=== PATIENT | female | born 1965 | race Two or more races ===

== ENCOUNTER 2024-08-01 19:04 | Emergency (ER) | payer MEDICAID, SELFPAY ==
[2024-08-01 19:05] VITALS: BMI 41.1
--- NOTE | 2024-08-01 19:12 | EKG_ITS ---
[facility] Test Date: 2024-08-01 Pat Name: COLTEN YAO Department: Room: - Gender: Female Clarity Specialists: : 1965 Requested By: Brandon Mcpherson Order Number: [id number] Reading MD: Brandon Mcpherson Measurements Intervals [place] Rate: 91 P: 13 IN: 154 QRS: -34 QRSD: 91 T: 37 QT: 353 QTc: 436 Interpretive Statements SINUS RHYTHM LEFT AXIS DEVIATION [QRS AXIS < -30] LOW QRS VOLTAGE IN PRECORDIAL LEADS [QRS DEFLECTION < 1.0 mV IN CHEST LEADS] PATTERN CONSISTENT WITH PULMONARY DISEASE MODERATE VOLTAGE CRITERIA FOR LVH, CONSIDER NORMAL VARIANT [MEETS CRITERIA IN ONE OF: R(aVL), S(V1), R(V5), R(V5/V6)+S(V1)] Compared to ECG 11/16/2023 10:07:37 Left-axis deviation now present Myocardial infarct finding no longer present /store/S0/[id number]
[2024-08-01 19:16] VITALS: BP 136/88; PULSE 91; RESP 18; TEMP 37.2; O2SAT 99
--- NOTE | 2024-08-01 19:28 | XR_ITS ---
Examination: PA chest single view TECHNIQUE: Upright PA chest single view. Exam date and time: August 01, 2024, 1935 hours Comparison 12/27/2022. INDICATIONS: Chest pressure beginning 2 days ago. FINDINGS: Normal heart size. No pneumonia or pulmonary edema Reduced inspiration IMPRESSION: No pneumonia or pulmonary edema
--- NOTE | 2024-08-01 19:57 | PD.EDCHEST ---
ED Chest Pain RME/HPI General Chief Complaint: Chest Pain Stated Complaint: CHEST PAIN, DIZZINESS, SHAKY Time Seen by Provider: 08/01/24 19:28 Arrival date/time: 08/01/24 19:04 59F with history of HTN and HLD presents to ED with 2 days of CP, dizziness, SOB, and blurry vision. Patient's mom very recently, but patient denies SI/HI. Limitations: no limitations Related Data Home Medications ?Medication ?Instructions ?Recorded ?Confirmed amlodipine 10 mg tablet 10 mg PO QDAY #0 tabs 03/13/17 12/29/23 albuterol sulfate 90 mcg/actuation 1 inh inhalation QID PRN 10/13/22 12/29/23 aerosol inhaler Bronchospasm atorvastatin 20 mg tablet 20 mg PO QPM 10/13/22 12/29/23 lisinopril 40 mg tablet 40 mg PO QDAY 10/13/22 12/29/23 aspirin 81 mg tablet,delayed 81 mg PO QDAY 11/16/23 12/29/23 release pantoprazole 40 mg tablet,delayed 40 mg PO QDAY 11/16/23 12/29/23 release (Protonix) semaglutide (weight loss) 0.5 0.5 mg subcut QWEEK 11/16/23 12/28/23 mg/0.5 mL subcutaneous pen injector (Wegovy) Previous Rx's ?Medication ?Instructions ?Recorded famotidine 40 mg tablet (Pepcid) 40 mg PO QDAY #7 tabs 11/10/23 hydrocodone 5 mg-acetaminophen 325 1 tab PO Q6H PRN pain #30 tabs 11/17/23 mg tablet ciprofloxacin HCl 500 mg tablet 500 mg PO BID #14 tabs 12/29/23 (Cipro) hydrocodone 5 mg-acetaminophen 325 1 tab PO Q6H PRN pain #20 tabs 12/29/23 mg tablet levofloxacin 750 mg tablet 750 mg PO QDAY #14 tabs 01/18/24 Allergies Allergy/AdvReac Type Severity Reaction Status Date / Time No Known Allergies Allergy Verified 08/01/24 19:05 Review of Systems Review of Systems Systems Reviewed: All systems reviewed, normal except as documented Constitutional Constitutional: Reports system reviewed and no additional complaints, except as documented, Denies fever(s) and Denies headache(s) Eyes Eyes: Reports as per HPI and Reports blurry vision ENT Ears, Nose, Mouth, and Throat: Reports as per HPI, Denies disequilibrium, Denies headache(s) and Reports vertigo Cardiovascular Cardiovascular: Reports system reviewed and no additional complaints, except as documented, Reports as per HPI, Reports chest pain and Reports dyspnea Respiratory Respiratory: Reports system reviewed and no additional complaints, except as documented, Denies cough and Reports dyspnea Gastrointestinal Gastrointestinal: Reports system reviewed and no additional complaints, except as documented, Denies abdominal pain, Denies nausea and Denies vomiting Neurologic Neurologic: Reports system reviewed and no additional complaints, except as documented, Denies confusion, Denies disequilibrium, Denies headache(s) and Reports vertigo Psychiatric Psychiatric: Denies confusion Past Medical History Past Medical History NEUROLOGIC: Negative Neurological Disorders or Seizures CARDIAC: Positive Cardiac Disorders, Hypercholesterolemia and Hypertension; Negative Congestive Heart Failure, Edema, Cellulitis or Varicose Veins RESPIRATORY: Positive Asthma; Negative Chronic Obstructive Pulmonary Disease (COPD) GASTROINTESTINAL: Positive Gastrointestinal Disorders, Gall Bladder Disease, Gastroesophageal Reflux Disease and Obesity; Negative Hepatitis GENITOURINARY: Positive Genitourinary Disorders and Kidney Stones; Negative Renal Disease REPRODUCTIVE: Positive Previous Pregnancies (3) MUSCULOSKELETAL: Positive Musculoskeletal Disorders and Arthritis ENDOCRINE: Negative Endocrine Disorders, Diabetes Mellitus Type 1 or Diabetes Mellitus Type 2 HEMATOLOGIC: Negative Blood Disorders or Sickle Cell Disease OTHER HISTORY: Positive Hospitalization and Chicken Pox; Negative Autoimmune Disease, Shingles, Falls, Blood Transfusions, Blood Transfusion Reaction, Anesthesia Reactions, Chemotherapy, Radiation Therapy, MRSA, Measles, Mumps or Cancer Family History FAMILY HISTORY: Positive Family Respiratory Disorders, Family Cardiac Disorders and Family Surgery; Negative Family Psychiatric Problems, Family Gastrointestinal Problems, Family Cancer or Family Anesthesia Reaction Surgical History SURGICAL: Positive Hysterectomy, Tubal Ligation and Section (x3); Negative Pacemaker Social History SMOKING STATUS: Never smoker SUBSTANCE USE: does not use ED Exam General Limitations: Present no limitations General appearance: Present alert, in no apparent distress and anxious (crying) Head Head exam: Present atraumatic Eye Eye exam: Present normal appearance, PERRL and EOMI ENT ENT exam: Present normal exam, normal oropharynx and mucous membranes moist Neck Neck exam: Present normal inspection, full ROM and trachea midline Chest Chest inspection: Present normal inspection and symmetric chest wall rise Respiratory Respiratory exam: Present normal lung sounds bilaterally Cardiovascular Cardiovascular exam: Present regular rate, normal rhythm and normal heart sounds Abdominal Exam Abdominal exam: Present soft and normal bowel sounds Extremities Exam Extremities exam: Present normal inspection and full ROM Back Exam Back exam: Present normal inspection and full ROM Neurological Exam Neurological exam: Present alert, oriented X3 and CN II-XII intact Psychiatric Psychiatric exam: Present normal affect and normal mood Skin Skin exam: Present warm, dry, intact and normal color Course Quality Measures none Orders Category Date Time Status EKG (ED ONLY) *Do not use* NOW Care 08/01/24 19:12 Completed EKG (ED Only) Stat Exams 08/01/24 19:12 Draft XR chest 1V portable Stat Exams 08/01/24 19:28 Completed CBC Stat Lab 08/01/24 19:46 Completed Comprehensive Metabolic Panel Stat Lab 08/01/24 19:46 Completed Lipase Stat Lab 08/01/24 19:46 Completed Troponin I Stat Lab 08/01/24 19:46 Completed Diazepam [Valium] Med 08/01/24 19:28 Discontinued 5 mg PO X1 ONE Vital Signs Vital signs: Vital Signs Temperature 99 F 08/01/24 19:16 Pulse Rate 91 08/01/24 19:16 Respiratory Rate 18 08/01/24 19:16 Blood Pressure 136/88 H 08/01/24 19:16 Pulse Oximetry (%) 99 08/01/24 19:16 Oxygen Delivery Method Room Air 08/01/24 19:16 O2 at 99% on RA and WNLs Chest Pain MDM Narrative MDM Narrative:: 59F with history of HTN and HLD presents to ED with 2 days of CP, dizziness, SOB, and blurry vision. Patient's mom very recently, but patient denies SI/HI. Physical exam reveals normal WOB. RRR. CN II-XII grossly intact. Patient is afebrile, alert, but anxious/crying. Gait normal. EKG is NSR. Normal trop. CXR normal. No leukocytosis. CMP unremarkable. Valium relieved symptoms. Likely stress reaction. Patient data External records reviewed:: [facility] previous records Clinical information provided by:: patient Social determinants that could affect healthcare access:: none Patient has the following chronic illnesses:: HTN and HLD How is presenting disease/condition affected by chronic disease/condition?: exacerbated by Evaluation data The following diagnostics were reviewed and interpreted by me:: lab results, radiology exam(s) and EKG tracing(s) Lab and/or radiology exams considered but not ordered:: ordered Interpretation Summary: above Medications / Prescriptions Medications or Prescriptions considered but not ordered:: ordered Medication administrations:: Medication Administration History Discontinued Medications Diazepam (Diazepam 5 Mg Tablet) 5 mg PO X1 ONE Stop: 08/01/24 19:29 Last Admin: 08/01/24 20:16 Dose: 5 mg Documented By: KF above Consultations Consultation(s) initiated? (list below): No Diagnosis Chest Pain Differential Diagnosis: fracture of rib, pneumothorax, stable angina, unstable angina pectoris, atypical chest pain, st elevation myocardial infarction, costochondritis, chest pain, biliary colic and other (anxiety, stress reaction) Most likely diagnosis given after review of the tests above:: stress reaction Admission Indicated Admission indicated?: not indicated Admission Request Was there a request for admission?: No Disposition Plan Disposition Plan: Discharge Discharge Attestation Discharge Attestation: The patient and all family members were given an opportunity to ask questions and understood the discharge instructions. Discharge instructions specifically effects, indications for sooner follow up or return to the emergency department, and the expected course of current diagnosis. Patient condition: Stable Discharge Plan Plan Patient Disposition: HOME (Self Care) Discharge Disposition comment: Stable Prescriptions/Referrals Prescriptions/Med Rec: No Action amlodipine 10 mg Tablet 10 mg PO QDAY Qty: 0 atorvastatin 20 mg Tablet 20 mg PO QPM lisinopril 40 mg Tablet 40 mg PO QDAY albuterol sulfate 90 mcg/actuation Hfa Aerosol Inhaler 1 inh INHALATION QID PRN (Reason: Bronchospasm) levofloxacin 750 mg tablet 750 mg PO QDAY Qty: 14 0RF famotidine [Pepcid] 40 mg tablet 40 mg PO QDAY Qty: 7 0RF aspirin 81 mg Tablet,Delayed Release (Dr/Ec) 81 mg PO QDAY pantoprazole [Protonix] 40 mg Tablet,Delayed Release (Dr/Ec) 40 mg PO QDAY Wegovy 0.5 mg/0.5 mL Pen Injector 0.5 mg SUBCUT QWEEK Rx Instructions: administer weeks 5 through 8 of therapy hydrocodone-acetaminophen 5-325 mg tablet 1 tab PO Q6H MDD 4 PRN (Reason: pain) Qty: 30 0RF hydrocodone-acetaminophen 5-325 mg tablet 1 tab PO Q6H MDD 4 PRN (Reason: pain) Qty: 20 0RF ciprofloxacin HCl [Cipro] 500 mg tablet 500 mg PO BID Qty: 14 0RF Referrals: Ginny Briggs PA-C [Primary Care Provider] - In 1 week Problem List Clinical Impression: Stress reaction Patient/Caregiver Discharge Instructions Education Materials: Your Body's Response to Anxiety Additional Instructions: Please follow-up with PCP within 24-48 hours and return immediately if symptoms worsen. Print Language: Nauruan Stand Alone Forms: Patient Portal Info Letter PA/TIMBER HARVESTER OPERATOR Supervising Physician PA/TIMBER HARVESTER OPERATOR Supervising Physician: Dr. Najera
[2024-08-01 20:03] LABS: Basophils % (Auto) 0 % (0-2.5); Eosinophils # (Auto) 0.2 Thou/mm3 (0.0-0.5); Eosinophils % (Auto) 2 % (0-10); Hematocrit 41.7 % (36.0-46.0); Hemoglobin 14.1 g/dL (12.0-16.0); Immature Granulocytes % (Auto) 0 % (0-0); Immature Granulocytes Auto 0.02 Thou/mm3 (0.00-0.00); Lymphocytes # (Auto) 2.1 Thou/mm3 (1.0-4.8); Lymphocytes % (Auto) 19 % (10-50); Mean Corpuscular HGB Conc 33.8 g/dl (31.0-37.0); Mean Corpuscular Hemoglobin 30.1 pg (25.0-35.0); Mean Corpuscular Volume 89 fL (80-100); Monocytes # (Auto) 0.4 Thou/mm3 (0.0-0.8); Monocytes % (Auto) 4 % (0-12); Neutrophils # (Auto) 8.1 Thou/mm3 (1.8-7.7); Neutrophils % (Auto) 75 % (37-80); Nucleated Red Blood Cell % 0 /100 WBC (0); Platelet Count 249 Thou/mm3 (140-440); RDW Standard Deviation 42.3 fL (36.4-46.3); Red Blood Count 4.69 Miln/mm3 (4.00-5.20); White Blood Count 10.8 Thou/mm3 (3.6-11.0)
[2024-08-01] MEDS: DIAZEPAM 5 MG TABLET PO (20:16)
[2024-08-01 20:28] LABS: Alanine Aminotransferase 12 U/L (10-49); Albumin, Serum 4.5 gm/dL (3.5-5.0); Albumin/Globulin Ratio 1.4 (1.2-2.2); Alkaline Phosphatase 126 U/L (46-116); Anion Gap 8 (7-16); Aspartate Amino Transferase 12 U/L (0-34); BUN/Creatinine Ratio 19 Ratio (12-20); Bilirubin,Total 0.5 mg/dL (0.3-1.2); Blood Urea Nitrogen 15 mg/dL (9-23); Calcium 9.4 mg/dL (8.3-10.6); Calcium (Corrected) 9.4 mg/dL (8.5-10.1); Carbon Dioxide 24.4 mMol/L (20.0-31.0); Chloride 105 mMol/L (98-107); Creatinine (Component) 0.8 mg/dL (0.6-1.3); Estimated Creatinine Clearance 92.4 mL/min (>60); Globulin 3.3 gm/dL (2.3-3.5); Glucose 102 mg/dL (74-106); Lipase 56 U/L (12-53); Osmolality,Calculated 274 (275-295); Potassium 3.7 mMol/L (3.4-5.1); Sodium 137 mMol/L (136-145); Total Protein 7.8 gm/dL (5.7-8.2); Troponin I < 0.002 ng/mL (0.0-0.045); eGFR > 60 See Note
== END 2024-08-01 22:19 | disposition home or self-care (01) ==
PROVIDERS: Physician Assistant; Emergency Provider Emergency Medicine; PCP Physician Assistant
DX: F43.9 Reaction to severe stress, unspecified (principal); R07.89 Other chest pain; R94.31 Abnormal electrocardiogram [ECG] [EKG]; I10 Essential (primary) hypertension; E78.5 Hyperlipidemia, unspecified
CPT/HCPCS: 36415; 71045; 80053; 83690; 84484; 85025; 93005; 99283; A9270

== ENCOUNTER 2024-10-25 23:24 | Emergency (ER) | payer MEDICAID, SELFPAY ==
[2024-10-25 23:25] VITALS: BMI 48.0
[2024-10-25 23:30] VITALS: BP 174/96; PULSE 101; RESP 17; TEMP 36.8; O2SAT 98
--- NOTE | 2024-10-25 23:41 | EKG_ITS ---
[facility] Test Date: 2024-10-25 Pat Name: COLTEN YAO Department: Room: - Gender: Female Shipping Packer: : 1965 Requested By: Brandon Mcpherson Order Number: [id number] Reading MD: Brandon Mcpherson Measurements Intervals [place] Rate: 95 P: 20 AR: 154 QRS: -38 QRSD: 92 T: 42 QT: 366 QTc: 461 Interpretive Statements SINUS RHYTHM LEFT AXIS DEVIATION [QRS AXIS < -30] LOW QRS VOLTAGE IN PRECORDIAL LEADS [QRS DEFLECTION < 1.0 mV IN CHEST LEADS] MODERATE VOLTAGE CRITERIA FOR LVH, CONSIDER NORMAL VARIANT [MEETS CRITERIA IN ONE OF: R(aVL), S(V1), R(V5), R(V5/V6)+S(V1)] POSSIBLE ANTERIOR MYOCARDIAL INFARCTION , PROBABLY OLD [30 ms Q WAVE IN V3/V4, OR R < 0.2 mV IN V4] Compared to ECG 08/01/2024 19:20:49 Myocardial infarct finding now present /store/S0/[id number]
--- NOTE | 2024-10-25 23:43 | PD.EDEXREM ---
ED Extremity Problem RME/HPI General Chief complaint: Extremity Problem,Nontraumatic Stated complaint: LEFT SHOULDER PAIN Time Seen by Provider: 10/25/24 23:40 Arrival date/time: 10/25/24 23:24 59F with history of HTN presents to ED with several months of L shoulder pain w/o fall/trauma. Yesterday it got worse and now there is LLE numbness. Patient got scared and wanted to be evaluated because her mom 5 months ago. Patient denies CP, SOB, weakness, dizziness, and fatigue. Limitations: no limitations Related Data Home Medications ?Medication ?Instructions ?Recorded ?Confirmed amlodipine 10 mg tablet 10 mg PO QDAY #0 tabs 03/13/17 12/29/23 albuterol sulfate 90 mcg/actuation 1 inh inhalation QID PRN 10/13/22 12/29/23 aerosol inhaler Bronchospasm atorvastatin 20 mg tablet 20 mg PO QPM 10/13/22 12/29/23 lisinopril 40 mg tablet 40 mg PO QDAY 10/13/22 12/29/23 aspirin 81 mg tablet,delayed 81 mg PO QDAY 11/16/23 12/29/23 release pantoprazole 40 mg tablet,delayed 40 mg PO QDAY 11/16/23 12/29/23 release (Protonix) semaglutide (weight loss) 0.5 0.5 mg subcut QWEEK 11/16/23 12/28/23 mg/0.5 mL subcutaneous pen injector (Wegovy) Previous Rx's ?Medication ?Instructions ?Recorded famotidine 40 mg tablet (Pepcid) 40 mg PO QDAY #7 tabs 11/10/23 hydrocodone 5 mg-acetaminophen 325 1 tab PO Q6H PRN pain #30 tabs 11/17/23 mg tablet ciprofloxacin HCl 500 mg tablet 500 mg PO BID #14 tabs 12/29/23 (Cipro) hydrocodone 5 mg-acetaminophen 325 1 tab PO Q6H PRN pain #20 tabs 12/29/23 mg tablet levofloxacin 750 mg tablet 750 mg PO QDAY #14 tabs 01/18/24 Allergies Allergy/AdvReac Type Severity Reaction Status Date / Time No Known Allergies Allergy Verified 10/25/24 23:25 Review of Systems Review of Systems Systems Reviewed: All systems reviewed, normal except as documented Constitutional Constitutional: Reports system reviewed and no additional complaints, except as documented, Denies fever(s) and Denies headache(s) ENT Ears, Nose, Mouth, and Throat: Denies disequilibrium and Denies headache(s) Cardiovascular Cardiovascular: Reports system reviewed and no additional complaints, except as documented, Denies chest pain and Denies dyspnea Respiratory Respiratory: Reports system reviewed and no additional complaints, except as documented, Denies cough and Denies dyspnea Gastrointestinal Gastrointestinal: Reports system reviewed and no additional complaints, except as documented, Denies abdominal pain, Denies nausea and Denies vomiting Musculoskeletal Musculoskeletal: Reports as per HPI, Reports arthralgias and Reports numbness Neurologic Neurologic: Reports system reviewed and no additional complaints, except as documented, Reports as per HPI, Denies confusion, Denies disequilibrium, Denies headache(s) and Reports numbness Psychiatric Psychiatric: Denies confusion Past Medical History Past Medical History NEUROLOGIC: Negative Neurological Disorders or Seizures CARDIAC: Positive Cardiac Disorders, Hypercholesterolemia and Hypertension; Negative Congestive Heart Failure, Edema, Cellulitis or Varicose Veins RESPIRATORY: Positive Asthma; Negative Chronic Obstructive Pulmonary Disease (COPD) GASTROINTESTINAL: Positive Gastrointestinal Disorders, Gall Bladder Disease, Gastroesophageal Reflux Disease and Obesity; Negative Hepatitis GENITOURINARY: Positive Genitourinary Disorders and Kidney Stones; Negative Renal Disease REPRODUCTIVE: Positive Previous Pregnancies (3) MUSCULOSKELETAL: Positive Musculoskeletal Disorders and Arthritis ENDOCRINE: Negative Endocrine Disorders, Diabetes Mellitus Type 1 or Diabetes Mellitus Type 2 HEMATOLOGIC: Negative Blood Disorders or Sickle Cell Disease OTHER HISTORY: Positive Hospitalization and Chicken Pox; Negative Autoimmune Disease, Shingles, Falls, Blood Transfusions, Blood Transfusion Reaction, Anesthesia Reactions, Chemotherapy, Radiation Therapy, MRSA, Measles, Mumps or Cancer Family History FAMILY HISTORY: Positive Family Respiratory Disorders, Family Cardiac Disorders and Family Surgery; Negative Family Psychiatric Problems, Family Gastrointestinal Problems, Family Cancer or Family Anesthesia Reaction Surgical History SURGICAL: Positive Hysterectomy, Tubal Ligation and Section (x3); Negative Pacemaker Social History SMOKING STATUS: Never smoker SUBSTANCE USE: does not use ED Exam General Limitations: Present no limitations General appearance: Present alert and in no apparent distress Head Head exam: Present atraumatic Eye Eye exam: Present normal appearance, PERRL and EOMI ENT ENT exam: Present normal exam, normal oropharynx and mucous membranes moist Neck Neck exam: Present normal inspection, full ROM and trachea midline Chest Chest inspection: Present normal inspection and symmetric chest wall rise Respiratory Respiratory exam: Present normal lung sounds bilaterally Cardiovascular Cardiovascular exam: Present regular rate, normal rhythm and normal heart sounds Abdominal Exam Abdominal exam: Present soft and normal bowel sounds Extremities Exam Extremities exam: Present normal inspection and full ROM Back Exam Back exam: Present normal inspection and full ROM Neurological Exam Neurological exam: Present alert, oriented X3 and CN II-XII intact Psychiatric Psychiatric exam: Present normal affect and normal mood Skin Skin exam: Present warm, dry, intact and normal color Course Quality Measures none Orders Category Date Time Status EKG (ED ONLY) *Do not use* NOW Care 10/25/24 23:41 Completed EKG (ED Only) Stat Exams 10/25/24 23:41 Draft Vital Signs Vital signs: Vital Signs Temperature 98.2 F 10/25/24 23:30 Pulse Rate 101 H 10/25/24 23:30 Respiratory Rate 17 10/25/24 23:30 Blood Pressure 174/96 H 10/25/24 23:30 Pulse Oximetry (%) 98 10/25/24 23:30 Oxygen Delivery Method Room Air 10/25/24 23:30 O2 at 98% on RA and WNLs Extremity Problem MDM Narrative MDM Narrative:: 59F with history of HTN presents to ED with several months of L shoulder pain w/o fall/trauma. Yesterday it got worse and now there is LLE numbness. Patient got scared and wanted to be evaluated because her mom 5 months ago. Patient denies CP, SOB, weakness, dizziness, and fatigue. Physical exam reveals no gross RUE abnormalities. Skin is normal colored. ROM intact, but painful. Normal WOB. Speech normal. Gait normal. Patient is afebrile, calm, and alert. Patient would like an EKG for peace of mind. EKG is NSR. Patient data External records reviewed:: [facility] previous records Clinical information provided by:: patient Social determinants that could affect healthcare access:: none Patient has the following chronic illnesses:: HTN How is presenting disease/condition affected by chronic disease/condition?: uneffected by Evaluation data The following diagnostics were reviewed and interpreted by me:: EKG tracing(s) Lab and/or radiology exams considered but not ordered:: ordered Interpretation Summary: above Medications / Prescriptions Medications or Prescriptions considered but not ordered:: not ordered Medication administrations:: n/a Consultations Consultation(s) initiated? (list below): No Diagnosis Extremity Problem Differential Diagnosis: herpes zoster, gout, cellulitis, superficial thrombophlebitis, deep venous thrombosis of upper extremity, lower extremity edema, deep vein thrombosis of lower extremity and other (shoulder pain) Most likely diagnosis given after review of the tests above:: shoulder pain Admission Indicated Admission indicated?: not indicated Admission Request Was there a request for admission?: No Disposition Plan Disposition Plan: Discharge Discharge Attestation Discharge Attestation: The patient and all family members were given an opportunity to ask questions and understood the discharge instructions. Discharge instructions specifically effects, indications for sooner follow up or return to the emergency department, and the expected course of current diagnosis. Patient condition: Stable Discharge Plan Plan Patient Disposition: HOME (Self Care) Discharge Disposition comment: Stable Prescriptions/Referrals Prescriptions/Med Rec: No Action amlodipine 10 mg Tablet 10 mg PO QDAY Qty: 0 atorvastatin 20 mg Tablet 20 mg PO QPM lisinopril 40 mg Tablet 40 mg PO QDAY albuterol sulfate 90 mcg/actuation Hfa Aerosol Inhaler 1 inh INHALATION QID PRN (Reason: Bronchospasm) levofloxacin 750 mg tablet 750 mg PO QDAY Qty: 14 0RF famotidine [Pepcid] 40 mg tablet 40 mg PO QDAY Qty: 7 0RF aspirin 81 mg Tablet,Delayed Release (Dr/Ec) 81 mg PO QDAY pantoprazole [Protonix] 40 mg Tablet,Delayed Release (Dr/Ec) 40 mg PO QDAY Wegovy 0.5 mg/0.5 mL Pen Injector 0.5 mg SUBCUT QWEEK Rx Instructions: administer weeks 5 through 8 of therapy hydrocodone-acetaminophen 5-325 mg tablet 1 tab PO Q6H MDD 4 PRN (Reason: pain) Qty: 30 0RF hydrocodone-acetaminophen 5-325 mg tablet 1 tab PO Q6H MDD 4 PRN (Reason: pain) Qty: 20 0RF ciprofloxacin HCl [Cipro] 500 mg tablet 500 mg PO BID Qty: 14 0RF Problem List Clinical Impression: Left shoulder pain Patient/Caregiver Discharge Instructions Education Materials: ED Shoulder Impingement Syndrome Additional Instructions: Please follow-up with PCP within 24-48 hours and return immediately if symptoms worsen. If problem persists, recommend outpatient PT and/or MRI follow-up. In the meantime, rest, use ice/heat, and/or compression. Print Language: Bulgarian Stand Alone Forms: Patient Portal Info Letter PA/SCIENCE EDITOR Supervising Physician EMELYN/SCIENCE EDITOR Supervising Physician: Dr. Aguilar
== END 2024-10-25 23:58 | disposition home or self-care (01) ==
LOC: SERX 23:59
PROVIDERS: Emergency Provider Emergency Medicine; PCP Physician Assistant
DX: M25.512 Pain in left shoulder (principal); R94.31 Abnormal electrocardiogram [ECG] [EKG]; I10 Essential (primary) hypertension
CPT/HCPCS: 93005; 99283